=== PATIENT | female | born 1990 | race African-American/Black ===

== ENCOUNTER 2018-04-30 15:37 | Emergency (ER) | payer OTHER ==
[2018-04-30 16:12] VITALS: BP 133/78
--- NOTE | 2018-04-30 17:18 | UC ---
- HPI Summary HPI Summary: Patient is a 28-year-old female who presents emergency department for possible exposure to body fluids. 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 Patient states there is no blistering procedure and there was no blood on instrument. She is unaware of any significant past medical history for source patient. She is also unaware if testing will be obtained and source patient. Patient denies past medical history. Immunizations are up-to-date. Symptoms are mild in severity. Patient irrigated wound. No current modifying factors. - History of Current Complaint Chief Complaint: UCBodyFluidExposure Stated Complaint: LACERATION ON FINGER Time Seen by Provider: 04/30/18 16:01 PMH/Surg Hx/FS Hx/Imm Hx Previously Healthy: Yes - Surgical History Surgical History: None - Family History Known Family History: Positive: None - no first degree relatives with DM/heart disease, Non-Contributory - Social History Occupation: Employed Full-time Lives: With Family Alcohol Use: Weekly Substance Use Type: None Smoking Status (MU): Never Smoked Tobacco - Immunization History Most Recent Influenza Vaccination: none Most Recent Tetanus Shot: 2015 Most Recent Pneumonia Vaccination: none Review of Systems All Other Systems Reviewed And Are Negative: Yes Skin: Positive: Other - Puncture to second digit left hand Physical Exam Triage Information Reviewed: Yes Appearance: Well-Appearing - Patient sitting in chair in no acute distress. Pleasant. Vital Signs: Initial Vital Signs Temp 99.5 F 04/30/18 16:05 Pulse 76 04/30/18 16:05 Resp 18 04/30/18 16:05 BP 133/78 04/30/18 16:05 Pulse Ox 100 04/30/18 16:05 Vital Signs Reviewed: Yes Eyes: Positive: Conjunctiva Clear Neck: Positive: Supple Musculoskeletal: Positive: Other: - Superficial, very small puncture wound noted to the distal aspect left index finger. Neurological: Positive: Alert Psychological Exam: Normal Needlestick Course/Dx - Course Course Of Treatment: Patient presenting after puncture wound from a used dental instrument. Patient states there was no blood on instrument. Basic labs were obtained. Patient declines prophylactic treatment. Patient will follow-up with PCP or Workmen's Compensation physician for testing results and potential further testing and treatment. Patient understands and agrees with plan. - Diagnoses Provider Diagnoses: Exposure to body fluid due to accidental needlestick injury Discharge - Sign-Out/Discharge Documenting (check all that apply): Patient Departure All imaging exams completed and their final reports reviewed: No Studies - Discharge Plan Condition: Good Disposition: HOME Patient Education Materials: Needle Stick Injuries (ED) Referrals: Alan Syed MD [Primary Care Provider] - Additional Instructions: Schedule a follow up appointment with your PCP or workmen compensation doctor for testing results and further testing and treatment if indicated - Billing Disposition and Condition Condition: GOOD Disposition: Home
--- NOTE | 2018-05-01 16:48 | UC ---
- Progress Note Progress Note: 05/01/2018 Hep B surface antibody= immunity , and Hep B antigent =negative. Pt has immunity for hep B Still pending HIV 1&2 result. No change Radha Rocha PA-C Course/Dx - Diagnoses Provider Diagnoses: Exposure to body fluid due to accidental needlestick injury Discharge - Sign-Out/Discharge Documenting (check all that apply): Patient Departure - D/C home All imaging exams completed and their final reports reviewed: No Studies - Discharge Plan Condition: Good Disposition: HOME Patient Education Materials: Needle Stick Injuries (ED) Referrals: Alan Syed MD [Primary Care Provider] - Additional Instructions: Schedule a follow up appointment with your PCP or workmen compensation doctor for testing results and further testing and treatment if indicated - Billing Disposition and Condition Condition: GOOD Disposition: Home
== END 2018-04-30 16:30 | disposition home or self-care (01) ==
LOC: UCEAST 15:37
DX: Z77.21 Contact with and (suspected) exposure to potentially hazardous body fluids (principal); S61.231A Puncture wound without foreign body of left index finger without damage to nail, initial encounter; W46.1XXA Contact with contaminated hypodermic needle, initial encounter; Y92.531 Health care provider office as the place of occurrence of the external cause; Y99.0 Civilian activity done for income or pay
CPT/HCPCS: 36415; 86703; 86706; 86803; 87340; 99211; G0463

== ENCOUNTER 2018-07-15 13:26 | Emergency (ER) | payer BC, OTHER ==
[2018-07-15 13:46] VITALS: BP 127/81
--- NOTE | 2018-07-15 14:37 | UC ---
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 Initial pain was 10/10 flushed eye immediately now 1-2/10 eye feels irritated no photophobia no fb sensation - History of Current Complaint Chief Complaint: UCEye Stated Complaint: WC EYE COMPLAINT Time Seen by Provider: 07/15/18 14:36 Hx Obtained From: Patient Hx Last Menstrual Period: 07/12/18 Onset/Duration: Sudden Onset Timing: Constant Severity Initially: Severe Severity Currently: Mild Pain Intensity: 1 Pain Scale Used: 0-10 Numeric Location of Injury: Conjunctiva Character: Dull Aggravating Factor(s): Nothing Alleviating Factor(s): Other - flush Associated Signs And Symptoms: Positive: Negative - Risk Factors Penetrating Injury Risk Factor: Negative Globe Rupture Risk Factors: Negative Acute Glaucoma Risk Factors: Negative Optic Artery Occlusion Risk Factors: Negative - Allergies/Home Medications Allergies/Adverse Reactions: Allergies Allergy/AdvReac Type Severity Reaction Status Date / Time Anderson Allergy Severe Hives Uncoded 04/30/18 16:06 PMH/Surg Hx/FS Hx/Imm Hx Previously Healthy: Yes - Surgical History Surgical History: None - Family History Known Family History: Positive: Hypertension, Diabetes, Non-Contributory Negative: Cardiac Disease - Social History Alcohol Use: Weekly Substance Use Type: None Smoking Status (MU): Never Smoked Tobacco - Immunization History Most Recent Influenza Vaccination: none Most Recent Tetanus Shot: 2016 Most Recent Pneumonia Vaccination: none Review of Systems All Other Systems Reviewed And Are Negative: Yes Constitutional: Positive: Negative Skin: Positive: Negative Eyes: Positive: Negative ENT: Positive: Negative Respiratory: Positive: Negative Cardiovascular: Positive: Negative Gastrointestinal: Positive: Negative Genitourinary: Positive: Negative Motor: Positive: Negative Neurovascular: Positive: Negative Musculoskeletal: Positive: Negative Neurological: Positive: Negative Psychological: Positive: Negative Physical Exam Triage Information Reviewed: Yes Appearance: Well-Appearing, No Pain Distress, Well-Nourished Vital Signs: Initial Vital Signs Temp 98.4 F 07/15/18 13:43 Pulse 71 07/15/18 13:43 Resp 18 07/15/18 13:43 BP 127/81 07/15/18 13:43 Pulse Ox 100 07/15/18 13:43 Vital Signs Reviewed: Yes Eyes: Positive: Conjunctiva Clear, Other: - eomiperrl ENT: Positive: Hearing grossly normal. Negative: Nasal congestion, Nasal drainage, Trismus, Muffled voice, Hoarse voice Dental Exam: Normal Neck: Positive: Supple Respiratory: Positive: Lungs clear, Normal breath sounds, No respiratory distress, No accessory muscle use Cardiovascular: Positive: RRR, No Murmur Musculoskeletal: Positive: ROM Intact, No Edema Neurological: Positive: Alert Psychological Exam: Normal Skin Exam: Normal Eye Complaint Course/Dx - Differential Dx/Diagnosis Provider Diagnosis: Chemical conjunctivitis of right eye Discharge - Sign-Out/Discharge Documenting (check all that apply): Patient Departure All imaging exams completed and their final reports reviewed: No Studies - Discharge Plan Condition: Stable Disposition: HOME Patient Education Materials: Conjunctivitis (ED) Referrals: Alan Syed MD [Primary Care Provider] - Additional Instructions: you have a mild chemical conjunctivitis you don't need antibiotic drops at this time I expect you eye to be back to normal by the AM you can use ZADITOR eye drops (OTC) for eye irritation call me if symptoms worsen [phone] I will be here until 10 PM - Billing Disposition and Condition Condition: STABLE Disposition: Home
== END 2018-07-15 15:02 | disposition home or self-care (01) ==
LOC: UCEAST 13:26
DX: H10.211 Acute toxic conjunctivitis, right eye (principal)
CPT/HCPCS: 99211; G0463

== ENCOUNTER 2019-05-01 17:44 | Emergency (ER) | payer BC, OTHER ==
[2019-05-01] MEDS ORDERED: Ketorolac INJ* 30 MG/ML 1 ML VIAL IM ONE (18:15)
--- NOTE | 2019-05-01 18:18 | ED ---
HPI Chest Pain - HPI Summary HPI Summary: 29 year old female presents with chest pain for the past couple days. States it started after she was lifting. States that it is on the right-sided chest and radiates to her back. States that sharp in nature. States the pain last for only 30 seconds. It is intermittent. States she was sick last week. Denies current cough. No palpitations. States when she takes a deep breath it hurts worse. Is not short of breath. She admits to recent travel. Is on control. does have fam hx of blood clots. denies any calf pain or swelling. Nonsmoker. Denies any drug use. Has been taking Tylenol for the pain which has been helping. She states that she was expecting more improvement than this. She denies any medical conditions and no family history of cardiac disease. - History of Current Complaint Chief Complaint: EDChestPainROMI Time Seen by Provider: 05/01/19 18:01 Hx Last Menstrual Period: 07/12/18 Pain Intensity: 6 - Allergy/Home Medications Allergies/Adverse Reactions: Allergies Allergy/AdvReac Type Severity Reaction Status Date / Time Anderson Allergy Severe Hives Uncoded 05/01/19 17:52 PMH/Surg Hx/FS Hx/Imm Hx Endocrine/Hematology History: Denies: Hx Diabetes, Hx Thyroid Disease Cardiovascular History: Denies: Hx Hypertension Respiratory History: Denies: Hx Asthma, Hx Chronic Obstructive Pulmonary Disease (COPD) GI History: Denies: Hx Ulcer Infectious Disease History: No Infectious Disease History: Denies: Hx Hepatitis, Hx Human Immunodeficiency Virus (HIV), Traveled Outside the [place] in Last 30 Days - Family History Known Family History: Positive: None - no first degree relatives with DM/heart disease, Hypertension, Diabetes, Non-Contributory Negative: Cardiac Disease - Social History Alcohol Use: Weekly Hx Substance Use: No Substance Use Type: Reports: None Hx Tobacco Use: No Smoking Status (MU): Never Smoked Tobacco Review of Systems Negative: Fever Positive: Chest Pain Negative: Shortness Of Breath, Cough All Other Systems Reviewed And Are Negative: Yes Physical Exam Triage Information Reviewed: Yes Vital Signs On Initial Exam: Initial Vitals Temp Pulse Resp BP Pulse Ox 97.7 F 67 18 124/86 99 05/01/19 17:46 05/01/19 17:46 05/01/19 17:46 05/01/19 17:46 05/01/19 17:46 Vital Signs Reviewed: Yes Appearance: Positive: Well-Appearing Skin: Positive: Warm, Dry Head/Face: Positive: Normal Head/Face Inspection Eyes: Positive: Normal, EOMI, LINDSEY, Conjunctiva Clear ENT: Positive: Pharynx normal Respiratory/Lung Sounds: Positive: Clear to Auscultation, Breath Sounds Present , Other - reproducible chest pain Cardiovascular: Positive: Normal, RRR. Negative: Murmur, Rub Abdomen Description: Positive: Nontender, Soft Bowel Sounds: Positive: Present Musculoskeletal: Positive: Normal Neurological: Positive: Normal Psychiatric: Positive: Normal Procedures - Sedation Patient Received Moderate/Deep Sedation with Procedure: No Diagnostics - Vital Signs Vital Signs Temp Pulse Resp BP Pulse Ox 05/01/19 17:46 97.7 F 67 18 124/86 99 - Laboratory Result Diagrams: 05/01/19 18:32 05/01/19 18:32 Lab Statement: Any lab studies that have been ordered have been reviewed, and results considered in the medical decision making process. - Radiology chest Radiology Interpretation Completed By: ED Physician Summary of Radiographic Findings: no active disease - EKG No standard instances Cardiac Rate: NL EKG Rhythm: Sinus Rhythm Summary of EKG Findings: sinus rhythm Re-Evaluation - Re-Evaluation First Eval Re-Evaluation Time: 19:21 Change: Improved Comment: feeling better after toradol Chest Pain Course/Dx - Course Course Of Treatment: 29 year old female presents with chest pain for the past couple days. States it started after she was lifting. States that it is on the right-sided chest and radiates to her back. States that sharp in nature. States the pain last for only 30 seconds. It is intermittent. States she was sick last week. Denies current cough. No palpitations. States when she takes a deep breath it hurts worse. Is not short of breath. She admits to recent travel. Is on control. does have fam hx of blood clots. denies any calf pain or swelling. Nonsmoker. Denies any drug use. Has been taking Tylenol for the pain which has been helping. She states that she was expecting more improvement than this. She denies any medical conditions and no family history of cardiac disease. On exam has reproducible chest pain. EKG shows sinus rhythm. wbc normal. d-dimer neg. tropon in zero. crp elevated. No T- wave changes and no murmurs do not suspect pericarditis. Told to continue ibuprofen. told follow up with primary. Patient understands agrees with plan. - Chest Pain Differential Diagnosis/HQI/PQRI: Angina, Chest Wall, Pulmonary Embolism - Diagnoses Provider Diagnoses: Chest wall pain Discharge ED - Sign-Out/Discharge Documenting (check all that apply): Patient Departure - Discharge Plan Condition: Good Disposition: HOME Patient Education Materials: Chest Wall Pain (ED) Referrals: Alan Syed MD [Primary Care Provider] - Additional Instructions: take tyenlol or ibuprofen every 6 hours for pain Follow up with primary within 5 days Return to ED if develop any new or worsening symptoms - Billing Disposition and Condition Condition: GOOD Disposition: Home
[2019-05-01 18:39] LABS: ABS Lymphocytes 2.9 10^3/ul (1.0-4.8); ABS Monocytes 0.5 10^3/ul (0-0.8); ABS Neutrophils 4.2 10^3/ul (1.5-7.7); Eosinophil % 0.6 %; Hematocrit 39 % (35-47); Lymphocyte % 38.1 %; Mean Corpuscular HGB Conc 34 g/dL (31-36); Mean Corpuscular Hemoglobin 28 pg (27-31); Mean Corpuscular Volume 83 fL (80-97); Mean Platelet Volume 8.1 fL (7.4-10.4); Nucleated Red Blood Cells % 0.1; Platelet Count 373 10^3/uL (150-450); Red Blood Count 4.68 10^6 /uL (3.70-4.87); Red Cell Distribution Width 14 % (10-15); White Blood Count 7.7 10^3/uL (3.5-10.8)
[2019-05-01 18:57] LABS: ALT 8 U/L (7-52); AST 12 U/L (13-39); Albumin 3.8 g/dL (3.2-5.2); Albumin/Globulin Ratio 1.1 (1-3); Alkaline Phosphatase 72 U/L (34-104); Anion Gap 9 mmol/L (2-11); BUN/Creatinine Ratio 15.9 (8-20); Blood Urea Nitrogen 13 mg/dL (6-24); CO2 Carbon Dioxide 25 mmol/L (22-32); Calcium 8.9 mg/dL (8.6-10.3); Chloride 104 mmol/L (101-111); EGFR Non-African American 81.9 (>60); Globulin 3.5 g/dL (2-4); Glucose 78 mg/dL (70-100); Potassium 3.9 mmol/L (3.5-5.0); Sodium 138 mmol/L (135-145); Total Protein 7.3 g/dL (6.4-8.9)
[2019-05-01 18:59] LABS: INR 1.05 (0.82-1.09)
[2019-05-01 19:03] LABS: HCG Pregnancy < 0.60 mIU/mL
[2019-05-01 19:43] VITALS: BP 132/89
== END 2019-05-01 19:38 | disposition home or self-care (01) ==
LOC: ED 17:44
DX: R07.89 Other chest pain (principal)
CPT/HCPCS: 36415; 71045; 80053; 84484; 84702; 85025; 85379; 85610; 86140; 93005; 96372; 99282; J1885